=== PATIENT | female | born 1990 | race African-American/Black ===

== ENCOUNTER 2020-04-15 07:57 | Inpatient (IN) | payer OTHER ==
[2020-04-15] MEDS ORDERED: ELECTROLYTE-148 SOLN 500 ML IV ONE (09:00)
[2020-04-15 09:31] VITALS: BMI 34.0
[2020-04-15] MEDS ORDERED: ELECTROLYTE-148 SOLN 1,000 ML IV SCH (09:45)
--- NOTE | 2020-04-15 09:57 | HP ---
Past Medical History - Primary Care Physician PCP:: Janet Alexander - Admission Chief Complaint: 29 yrs , previous c/sx3, 39weeks , requests for repeat c/section & volumtory sterlization History of Present Illness: pnc at, [facility] transferred to [address] [place] [address] for rc/sec at 36 wks 04/09/20 labs h/h 11.0/32.9 , plt 209, gc/ct neg, gbs neg hiv neg , panel 09/27/19 AB Pos , Hbsag neg, hiv neg, rpr nr, rubella immune, cf screen neg, lead neg, pap nilm, gc/ct neg, uc/s neg , quantiferon neg 03/10/20 ; h/h 10.3/33.9, 1 hr gtt 82 us done by MFMaria Guadalupe Ayers at [facility]. 10/10/19 us 12.1 wks , edc assigned 04/22/20 nt screen, afp neg 02/27/20 us 32.1 wk, mey 12.0, efw 3'13"(19 %tile) History Source: Patient, Medical Record Limitations to Obtaining History: No Limitations - Past Medical History Cardiovascular: No: HTN, Murmur Pulmonary: No: Asthma Gastrointestinal: Yes: Hemorrhoids Hepatobiliary: No: Hepatitis B Renal/: No: UTI ...: 5 ...Para: 3 (1 12/14/07 PC/Sec boy 7'7" , G2 2013 Rc/s girl , G3 2015 boy, all at [facility] ) ...Term: 3 ...: 0 ...Spon : 0 ...Induced : 1 (08/03/18 ) ...Living Children: 3 ...Multiple Gestation: 0 ...LMP: 07/06/19 ... Weeks Gestation by Dates: 40.4 ...EDC by Dates: 04/11/20 ...EDC by Sono: 04/22/20 (39 weeks ) Heme/Onc: Yes: Anemia Infectious Disease: No: AIDS, C-Diff, Herpes Zoster, HIV, MRSA, STD's, Tuberculosis, VREF, Other Psych: No: Addictions, Anxiety, Bipolar, Depression, Panic, Psychosis, Schizophrenia, Other Endocrine: No: Diabetes Mellitus, Hyperthyroidism, Hypothyroidism - Past Surgical History Past Surgical History: Yes: (2007, 2013 & 2014) Hx Myomectomy: No Hx Transabdominal Cerclage: No - Smoking History Smoking history: Never smoked Have you smoked in the past 12 months: No - Alcohol/Substance Use Hx Alcohol Use: No History of Substance Use: reports: None Home Medications - Allergies Allergies/Adverse Reactions: Allergies Allergy/AdvReac Type Severity Reaction Status Date / Time No Known Allergies Allergy Verified 04/15/20 09:14 - Home Medications Home Medications: Ambulatory Orders NK [No Known Home Medication] 04/15/20 Review of Systems - Review of Systems Constitutional: reports: No Symptoms Eyes: reports: No Symptoms HENT: reports: No Symptoms Neck: reports: No Symptoms Cardiovascular: reports: No Symptoms Respiratory: reports: No Symptoms Gastrointestinal: reports: No Symptoms, Other (h/o hemorrhoids) Genitourinary: reports: No Symptoms Breasts: reports: Lumps (Rt breast) Musculoskeletal: reports: No Symptoms Integumentary: reports: No Symptoms Neurological: reports: No Symptoms Endocrine: reports: No Symptoms Hematology/Lymphatic: reports: No Symptoms Psychiatric: reports: No Symptoms Physical Exam - Maternity Vital Signs: Vital Signs Temperature 98.7 F 04/15/20 08:23 Pulse Rate 97 H 04/15/20 08:23 Respiratory Rate 18 04/15/20 08:23 Blood Pressure 124/82 04/15/20 08:23 O2 Sat by Pulse Oximetry (%) Selected Entries 04/15/20 09:16 Weight 230 lb Constitutional: Yes: Well Nourished, Obese Eyes: Yes: WNL HENT: Yes: WNL, Normocephalic Neck: Yes: WNL Cardiovascular: Yes: WNL Lungs: Clear to auscultation Breast(s): Yes: Mass (Rt breast at10 o'cloclk outside aeola , firm,irregular nontender) - Abdominal Exam/OB Fundal Height: 39 Number of Fetuses: Single Presentation: Vertex Contractions: Yes Regularity: Irregular Intensity: Unaware Monitor Mode: External Heart Rate (range): 130 Heart Rate Location: Midline Category: I Accelerations: Non-Uniform Decelerations: None - Vaginal Exam/OB Vaginal Bleeding: No Speculum Exam: No Dilatation (cm): close Effacement (%): unefface Amniotic Membrane Status: Intact Presentation: Vertex/Position Station: -3 - Physical Exam Musculoskeletal: Yes: WNL Extremities: Yes: WNL Edema: LLE: 1+, RLE: 1+ Integumentary: Yes: Incision (pfannensteil scar), Tattoos, Venous Stasis Changes (bilateral large varicose veins on thiighs) Deep Tendon Reflex Grade: Normal +2 ...Motor Strength: WNL Psychiatric: Yes: WNL - Labs Lab Results: Laboratory Tests 04/11/20 04/11/20 04/11/20 10:41 10:41 10:41 WBC 8.0 RBC 3.67 Hgb 10.7 Hct 31.7 L MCV 86.2 MCH 29.1 MCHC 33.8 RDW 15.4 Plt Count 203 MPV 7.9 Absolute Neuts (auto) 4.6 Neutrophils % 57.6 Lymphocytes % 26.1 Monocytes % 15.2 H Eosinophils % 0.8 Basophils % 0.3 Nucleated RBC % 0 PT with INR 11.20 INR 0.95 Sodium 139 Potassium 4.1 Chloride 107 Carbon Dioxide 27 Anion Gap 5 L BUN 7.2 Creatinine 0.5 L Est GFR (CKD-EPI)AfAm 149.47 Est GFR (CKD-EPI)NonAf 128.97 Random Glucose 58 L Calcium 8.8 Total Bilirubin 0.2 AST 13 L ALT 14 Total Protein 6.4 Albumin 2.9 L Syphilis Serology COVID-19 (MARY) 04/11/20 04/11/20 10:41 10:55 WBC RBC Hgb Hct MCV MCH MCHC RDW Plt Count MPV Absolute Neuts (auto) Neutrophils % Lymphocytes % Monocytes % Eosinophils % Basophils % Nucleated RBC % PT with INR INR Sodium Potassium Chloride Carbon Dioxide Anion Gap BUN Creatinine Est GFR (CKD-EPI)AfAm Est GFR (CKD-EPI)NonAf Random Glucose Calcium Total Bilirubin AST ALT Total Protein Albumin Syphilis Serology Non-reactive COVID-19 (MARY) Not detected Hemorrhage Risk Assessment - Risk Factors Medium Risk Factors: Yes: Prior , uterine surgery,or multiple laparot omies Risk Score: 1 Risk Level: Medium Risk Problem List - Problems (1) with 39 completed weeks gestation Code(s): Z3A.39 - 39 WEEKS GESTATION OF (2) Previous section Code(s): Z98.891 - HISTORY OF UTERINE SCAR FROM PREVIOUS SURGERY (3) Multiparity, grand, in labor and delivery, antepartum Code(s): O09.40 - SUPERVISION OF W GRAND MULTIPARITY, UNSP TRIMESTER (4) Obesity (BMI 30.0-34.9) Code(s): E66.9 - OBESITY, UNSPECIFIED (5) Mass of right breast Code(s): N63.10 - UNSPECIFIED LUMP IN THE RIGHT BREAST, UNSPECIFIED QUADRANT Assessment/Plan 29 yrs , 39 weeks by us previous c/s x3 , reuests repeat c/s & voluntory sterlization. Plan repeat LFTC/Section & BTL ( total salpingectomy). r/b/a explained not ltd to adhesion lysis, bladderm bowel, ureter injury, hemorrhage , inablity to access tubes . pt understands & consents for surgery
[2020-04-15] MEDS ORDERED: ACETAMINOPHEN 325 MG TABLET (FP) PO PRN (10:01)
[2020-04-15] MEDS ORDERED: IBUPROFEN 600 MG TABLET (FP) PO PRN (10:01)
[2020-04-15] MEDS ORDERED: ONDANSETRON 4 MG/2 ML VIAL IVPUSH PRN (10:01)
[2020-04-15] MEDS ORDERED: morphine SULFATE/PF 0.5 MG/ML (2cc Syringe - QUVA) ONE (10:42)
[2020-04-15] MEDS ORDERED: ceFAZolin SODIUM 1 GM VIAL ONE ×2 (10:57)
[2020-04-15] MEDS ORDERED: OXYTOCIN 10 UNITS/ML VIAL ONE ×4 (10:57→10:58)
[2020-04-15] MEDS ORDERED: ePHEDrine SULFATE 50 MG/1 ML AMPULE ONE (11:03)
[2020-04-15] MEDS ORDERED: oxyCODONE HCL 5 MG TABLET PO PRN (12:32)
[2020-04-15] MEDS ORDERED: METHYLERGONOVINE MALEATE 0.2 MG/1 ML AMP IM PRN (12:32)
--- NOTE | 2020-04-15 12:49 | PN ---
Delivery - Delivery Section: Repeat, Low Flap Transverse (repeat LFTC/section & bilatearla salpingectomy) Type of Anesthesia: Spinal Episiotomy/Laceration: None EBL (cc): 800 (intraop wolfe output 100mlamber color ) Delivery, Single - Stages of Labor Date of Delivery: 04/15/20 Time of Delivery: 11:12 Time Placenta Delivered: 11:13 Placenta: Yes: Manual Removal, Uterine Exploration - Condition of Infant Placing Judge/Side Show Entertainer Present: Yes Name: Catalina Ladd Gender: Female Weight: 7 lb 2 oz Position: Right, OT Total Hours ROM (Hrs/Mins): 0hrs 2min - 1 Minute Total Score: 9 5 Minutes Total Score: 9 - [place] Feeding Plan Initial Plan: Elected not to breastfeed exclusively throughout hospitalization Remarks - Remarks Remarks: 29 yrs , 39 weeks by us , previous c/sx3, requests repeat c/s gbs neg pnc [facility] PP & 2, [facility] Intra op course uneventful 2gm IV ancef intra op
[2020-04-15 12:51] LABS: CORD BASE EXCESS -5.5 mmol/L (0-2); CORD HCO3 22.6 mmHg (20-29); CORD PCO2 56.2 mmHg (30-78); CORD pH 7.223 (7.14-7.44)
[2020-04-15 12:54] LABS: CORD BASE EXCESS -4.6 mmol/L (0-2); CORD HCO3 21.5 mmHg (20-29); CORD PCO2 43.1 mmHg (30-78); CORD pH 7.315 (7.14-7.44)
--- NOTE | 2020-04-15 12:55 | OP ---
Operative Note - Note: Operative Date: 04/15/20 Pre-Operative Diagnosis: 39 weeks .previous c/sx3, multiparity , voluntory sterlization Operation: Repeat LFTC/section Bilateral salpingectomy Findings: bladder high mid way upto incision no rectus muscle noted in the middle . parietal pertoneum incisied transversely & approximated together transversely. Rt side muscle transcted for exposure of uterus . Baby girl , ROT Position, 9/9, wt7'2" both tubes & ovaries normal bilateral total salpingectomy with ligasure was done Angular Js Developer Dr Julee Arnold Surgeon: Janet Alexander Watermaster: Serjio Irby Anesthesiologist/STORE CLERK CASHIER: August Myers Anesthesia: Spinal Specimens Removed: cord segment for cord gas. cord blood. placenta Estimated Blood Loss (mls): 800 Drains, Volume Out (mls): 100 (wolfe urine output , kvng color ) Fluid Volume Replaced (mls): 1,500 (2 gm iv Ancef pre incision ) Operative Report Dictated: Yes
[2020-04-15] MEDS ORDERED: IBUPROFEN 800 MG/8 ML IJ IVPB ONE (13:39)
[2020-04-15] MEDS: IBUPROFEN 800 MG/8 ML IJ IVPB PRN ×2 (13:44→19:27)
--- NOTE | 2020-04-15 14:51 | OP ---
DATE OF OPERATION: 04/15/2020 PREOPERATIVE DIAGNOSIS: At 39 weeks, previous sections x3 and multiparity, voluntary sterilization. OPERATION: 1. Repeat low flap transverse section. 2. Bilateral total salpingectomy. SURGEON: Janet Alexander MD ANESTHESIOLOGIST: August Martinez MD SOLDER MAKING SUPERVISOR: VIOLA Olivera PROFESSIONAL ARCHITECT: Catalina Ladd MD FINDINGS: This is a 29-year-old 5, para 3-0-1-3. She is 39 weeks, not in labor and scheduled for a repeat and she also requests for a tubal ligation. Cephalic presentation. Also patient is obese. Her BMI is 39 and she has bilateral large varicose veins. PROCEDURE: Patient was taken to the operating room table. Spinal anesthesia was given. Baires catheter was placed and the SCD stockings were attached to the machine. Patient was in supine position. Abdomen was painted and draped in usual manner. Pfannenstiel incision was made through previous scar. The skin, subcutaneous tissue, anterior rectus sheath were incised transversely. Bleeding points were clamped and cauterized. Rectus muscle was from the rectus sheath. Parietal peritoneum was opened vertically. The parietal peritoneum was not opened vertically. The bladder was very high noted and before opening the parietal peritoneum it was incised transversely and the right side the rectus muscle was transected. The bladder high on the uterus and adhesion bands were lysed and the bladder was pushed down. Then the incision was made higher up on the uterus, higher limit of the lower segment, and was extended transversely. Amniotic fluid was clear. Baby was delivered at 11:12 a.m. from ROT position, baby girl. was 9, 9. Baby's weight was 7 pounds, 2 ounces. Cord was clamped and cut. Cord segment sent for the cord blood gas and the cord blood collected. Placenta removed completely with the membranes. Uterus brought out of the incision and then the uterine cavity was cleaned and the uterine incision was closed in 2 layers. First layer was a continuous locking with a Biosyn 0 suture. Second layer was intermittently locking with a Biosyn 0 suture, and in the second layer also the bladder peritoneum was included. Hemostasis was verified. Varicosity was seen in the broad ligament and both her ovaries were normal. Tubes were identified up to the fimbrial end, first on the right side, then on the left side. With the LigaSure just below the tube the mesosalpinx area was clamped and cauterized and cut in multiple steps until the cornual end was reached. The tube was split. Hemostasis was verified and irrigation was done. Uterus was placed to the peritoneal cavity. Hemostasis was verified on the uterus and also on both the tubal site and surgery. The lap pad, sponge, instrument, needle count was correct and then the closure of the abdomen was done. Parietal peritoneum was closed transversely with a Vicryl 0 suture. Then hemostasis was verified in the muscle layer and the right side muscle was approximated together with a Biosyn 0 suture. One suture was taken between the right and the left side together. There was no muscle seen in the middle portion of the incision right in the beginning. Then the anterior rectus sheath was mobilized from the skin and then the anterior rectus sheath was closed with a Vicryl 0 suture. Continuous sutures were taken. Then the rectus sheath was closed with a Vicryl 0 continuous suture. Hemostasis checked in subcutaneous tissue. Subcutaneous tissue approximated with 2-0 Vicryl. Skin was approximated with rsi and patient tolerated procedure well. Pressure dressing given and blood clots removed from the vagina. Patient tolerated procedure well and she was transferred to the recovery room in stable condition. Estimated blood loss was 800 mL. She received 2 g of IV Ancef prior to the incision. IV fluids were given, 1500 mL. Urine output was 100 mL and blood-colored urine. Mary [id number] MTDNora
[2020-04-15] MEDS: CEFAZOLIN 1 GM/D5W 1 GM/50 ML BAG IVPB SCH (17:24)
[2020-04-15] MEDS: OXYTOCIN 20 UNITS in 0.9% NS 20 UNIT/1,000 ML INFUS.BAG IV SCH (19:27)
[2020-04-15] MEDS ORDERED: SENNOSIDES/DOCUSATE COMBO (SENNA PLUS) TABLET (UD) PO PRN (22:00)
[2020-04-16] MEDS: ACETAMINOPHEN 325 MG TABLET (FP) PO PRN ×4 (01:39→22:21)
[2020-04-16] MEDS: IBUPROFEN 600 MG TABLET (FP) PO PRN ×4 (01:39→22:22)
[2020-04-16] MEDS: CEFAZOLIN 1 GM/D5W 1 GM/50 ML BAG IVPB SCH ×2 (01:40→10:30)
[2020-04-16] MEDS: IBUPROFEN 800 MG/8 ML IJ IVPB PRN (03:19)
--- NOTE | 2020-04-16 08:15 | PN ---
Post Progress Note - Subjective Subjective: Pain controlled. No fevers/chills. Baires removed. No flatus or BM yet. Post Day: 1 Type of Delivery: Repeat C/S Vital Signs: Vital Signs Temperature 98.6 F 04/16/20 06:00 Pulse Rate 88 04/16/20 06:00 Respiratory Rate 04/16/20 06:31 Blood Pressure 126/92 04/16/20 06:00 O2 Sat by Pulse Oximetry (%) 96 04/16/20 06:00 Uterus: Yes: Fundus below umbilicus Incision: Yes: Dressing dry and intact Abdomen/GI: Yes: Abdomen soft Lochia: Yes: Rubra Lochia, amount: Small Extremities: Yes: Calves non-tender Perineum: Yes: Intact Activity: Ambulating Assessment/Plan 29yo s/p RLTCS, BTL, POD#1 Routine PP Care PO pain control Baires out, OOB, ambulate F/U AM CBC D/C to home POD#3 Hung Herrrea MD
--- NOTE | 2020-04-16 08:46 | PN ---
Progress Note (short form) - Note Progress Note: 29F POD1 s/p c section under spinal anesthetic including intrathecal duramorph. Pt states that pain is well controlled and reports no anesthetic complications. Continue current regimen.
[2020-04-16 08:59] LABS: BASO % 0.3 % (0-2.0); EOS % 0.3 % (0-4.5); HEMOGLOBIN 9.3 GM/dL (10.7-15.3); LYMPH % 13.9 % (8-40); MCH 28.3 pg (25.7-33.7); MCHC 33.3 g/dl (32.0-36.0); MEAN PLT VOLUME 7.9 fl (7.5-11.1); MONO % 10.6 % (3.8-10.2); NEUT % 74.9 % (42.8-82.8); PLATELET COUNT 175 K/MM3 (134-434); RBC 3.29 M/mm3 (3.60-5.2); RDW 15.4 % (11.6-15.6); WHITE BLOOD COUNT 9.8 K/mm3 (4.0-10.0)
[2020-04-16] MEDS: PRENATAL VITAMINS W/ FOLIC ACID TABLET (FP) PO SCH (09:59)
[2020-04-16] MEDS: ENOXAPARIN NA (PORCINE) 40 MG/0.4 ML DISP.SYRIN SQ SCH (09:59)
[2020-04-16] MEDS ORDERED: BISACODYL 10 MG SUPP.RECT RC PRN (12:32)
[2020-04-16] MEDS ORDERED: WITCH HAZEL 50% (TUCKS) 40 PAD/JAR PAD TP PRN (13:09)
[2020-04-16] MEDS: SIMETHICONE 80 MG TAB.CHEW (FP) PO PRN ×2 (15:30→22:22)
[2020-04-16] MEDS: FERROUS SO4 325 MG TABLET (FP) PO SCH (17:15)
[2020-04-16] MEDS: OXYTOCIN 20 UNITS in 0.9% NS 20 UNIT/1,000 ML INFUS.BAG IV SCH (19:58)
[2020-04-16] MEDS ORDERED: BENZOCAINE 28 GM HEMORRHOIDAL OINTMENT RC PRN (23:35)
[2020-04-16] MEDS ORDERED: BENZOCAINE 20% 57 GM BOTTLE TP PRN (23:35)
[2020-04-17] MEDS: ACETAMINOPHEN 325 MG TABLET (FP) PO PRN (05:22)
[2020-04-17] MEDS: SIMETHICONE 80 MG TAB.CHEW (FP) PO PRN (05:22)
[2020-04-17] MEDS: IBUPROFEN 600 MG TABLET (FP) PO PRN (05:22)
--- NOTE | 2020-04-17 07:52 | DS ---
Physical Exam-LARGE ENGINE ASSEMBLER Vital Signs: Vital Signs Temperature 98.5 F 04/16/20 22:00 Pulse Rate 84 04/16/20 22:00 Respiratory Rate 20 04/16/20 22:00 Blood Pressure 119/72 04/16/20 22:00 O2 Sat by Pulse Oximetry (%) 96 04/16/20 06:00 Constitutional: Yes: Well Nourished, No Distress, Calm Eyes: Yes: WNL, Conjunctiva Clear, EOM Intact HENT: Yes: WNL, Atraumatic, Normocephalic Neck: Yes: WNL, Supple, Trachea Midline Cardiovascular: Yes: WNL, Regular Rate and Rhythm Respiratory: Yes: WNL, Regular, CTA Bilaterally Gastrointestinal: Yes: WNL ...Rectal Exam: Yes: WNL Renal/: Yes: WNL ....Post : Yes: Uterus firm, Uterus non-tender, Slight lochia rubra Breast(s): Yes: WNL Musculoskeletal: Yes: WNL Extremities: Yes: WNL Edema: No Integumentary: Yes: WNL Wound/Incision: Yes: Clean/Dry, Well Approximated, [place] Intact Neurological: Yes: WNL, Alert, Oriented ...Motor Strength: WNL Psychiatric: Yes: WNL, Alert, Oriented Labs: CBC, BMP 04/16/20 08:15 Delivery - Delivery Section: Repeat, Low Flap Transverse (repeat LFTC/section & bilatearla salpingectomy) Type of Anesthesia: Spinal Episiotomy/Laceration: None EBL (cc): 800 (intraop wolfe output 100mlamber color ) Delivery, Single - Stages of Labor Date of Delivery: 04/15/20 Time of Delivery: 11:12 Time Placenta Delivered: 11:13 Placenta: Yes: Manual Removal, Uterine Exploration - Condition of Infant Wharf Attendant/Tractor Engine Mechanic Present: Yes Name: Catalina Ladd Infant Gender: Female Weight: 7 lb 2 oz Position: Right, OT Total Hours ROM (Hrs/Mins): 0hrs 2min - 1 Minute Total Score: 9 5 Minutes Total Score: 9 - Feeding Plan Initial Plan: Elected not to breastfeed exclusively throughout hospitalization Discharge Summary Problems reviewed: Yes Reason For Visit: REPEAT & BTL Current Active Problems Mass of right breast (Acute) Multiparity, grand, in labor and delivery, antepartum (Acute) Obesity (BMI 30.0-34.9) (Acute) with 39 completed weeks gestation (Acute) Previous section (Acute) Procedures: Principal: repeat LST c/s Hospital Course: no complication Plan of Treatment: follow up [facility] care on Monday Condition: Stable - Instructions Diet, Activity, Other Instructions: Post Instructions DIET: Continue good diet high in protein, calcium, and iron rich foods. Drink at least eight (8) glasses of water daily in addition to other fluids. ___ Regular diet MEDICATIONS: Continue vitamins and iron as previously directed. Motrin and Tylenol may be taken for minor discomfort. ACTIVITY: Mild to moderate exercise may be started in two (2) weeks. Take frequent rest periods. Resume normal activity after six (6) week check up. WOUND CARE OF OPERATIVE SITE: Continue use of perineal bottle until vaginal discharge stops. Keep area clean. Shower daily. Keep abdominal wound dry. Report any drainage or redness to physician. Tub baths, tampons and douches are not permitted for [address] Breast feeding & or Bottle feeding BREAST CARE: (For those that are not ): If engorgement occurs: Wear tight fitting bra. Take Tylenol or Motrin for pain. Apply cold packs (ice in bags to each breast ) FAMILY PLANNING: There are many control alternatives to pursue and they should be discussed at your first office visit. You may resume sexual activity after your six (6) week check up. (Remember, breast feeding is not a contraceptive) NEXT PHYSICIAN APPOINTMENT: Be certain to call for a one (1) week appointment, unless otherwise directed. [facility] with Tawanda .call [phone] for sri removal Call Clinic or got to Emergency Dept if you have any of the following: Heavy vaginal bleeding Painful urination Leg pain Unusual odor noted to vaginal bleeding High fever Red streaking noted on breast Referrals: Janet Alexander MD [Staff Physician] - Disposition: HOME - Home Medications Comprehensive Discharge Medication List: Ambulatory Orders Acetaminophen [Tylenol .Regular Strength -] 500 mg PO Q4H PRN #30 tablet 04/16/20 Ferrous Sulfate [Feosol] 325 mg PO BIDWM #60 tab 04/16/20 Ibuprofen [Motrin -] 600 mg PO Q4H PRN #30 tablet 04/16/20 Vitamins (Sjr) - 1 tab PO DAILY #30 tablet 04/16/20 Sennosides/Docusate Sodium [Pericolace -] 2 tablet PO HS PRN #60 tablet 04/16/20 oxyCODONE HCL [Roxicodone -] 5 mg PO Q6H PRN #20 tablet MDD 20 mg 04/16/20
[2020-04-17] MEDS: FERROUS SO4 325 MG TABLET (FP) PO SCH (10:18)
[2020-04-17] MEDS: PRENATAL VITAMINS W/ FOLIC ACID TABLET (FP) PO SCH (10:20)
[2020-04-17] MEDS: ENOXAPARIN NA (PORCINE) 40 MG/0.4 ML DISP.SYRIN SQ SCH (10:21)
[2020-04-17 12:22] VITALS: BP 133/80; PULSE 80; TEMP 98.2
--- NOTE | 2020-04-21 09:48 | PATH ---
Surgical Pathology Report Patient Name: NASRA MARINELLI [facility]. Rec. #: [id number] /Age/Gender: 1990 (Age: 29) / F Account: [id number] Location: [address] [place] [address] OBG/RN OTOLARYNGOLOGY Taken: 04/15/2020 Received: 04/16/2020 Reported: 04/21/2020 Physicians: Janet Alexander M.D. Specimen(s) Received A: PLACENTA B: RIGHT FALLOPIAN TUBE C: LEFT FALLOPIAN TUBE Clinical History , Final Diagnosis A. PLACENTA, SECTION: 615 G THIRD TRIMESTER PLACENTA WITH MODERATE FIBRIN DEPOSITION, TRIVASCULAR UMBILICAL CORD AND UNREMARKABLE PLACENTAL MEMBRANES. B. FALLOPIAN TUBE, RIGHT, SALPINGECTOMY: UNREMARKABLE FALLOPIAN TUBE (INCLUDING FIMBRIATED END AND FULL LUMINAL PORTION). C. FALLOPIAN TUBE, LEFT, SALPINGECTOMY: UNREMARKABLE FALLOPIAN TUBE (INCLUDING FIMBRIATED END AND FULL LUMINAL PORTION). Electronically Signed Gisel Boyle M.D. Gross Description A. The specimen is received fresh labeled placenta and is a 615 gram, 21 x 17 x 1.5 cm. placenta with attached membranes and umbilical cord. The attached membranes are cantu, opaque and insert marginally. The umbilical cord measures 20 cm. in length and averages 1.2 cm. in diameter. The cord inserts centrally. No true knots or strictures are identified. Cut surface of the umbilical cord reveals 3 vessels. The surface is tello-blue with minimal fibrin deposition and appropriate caliber vessels. The maternal surface is red-brown with focal defects. Sectioning reveals cantu lesion measuring 5 cm in greatest dimension. Remainder of the parenchyma is red-brown and spongy. Restaurant [employer] sections are submitted in 5 cassettes as follows: 1- membrane rolls and umbilical cord; 2-3- full thickness sections of placenta; 4-5- lesion. B. Received in formalin labeled "right fallopian tube," is a 10 cm in length fimbriated fallopian tube. The outer surface is cantu-benoit. Sectioning reveals an unremarkable lumen. Restaurant [employer] sections are submitted in 2 cassettes as follows: 1-fimbria; 2-cross sections of fallopian tube. C. Received in formalin labeled "left fallopian tube," is a 8 cm in length fimbriated fallopian tube. The outer surface is cantu-benoit. Sectioning reveals an unremarkable lumen. Restaurant Cook sections are submitted in 2 cassettes as follows: 1-fimbria; 2-cross sections of fallopian tube S/04/16/2020 [facility]04/16/2020
== END 2020-04-17 13:00 | disposition home or self-care (01) | DRG 540 ==
LOC: JLDR 07:57 → J3N 14:13
PROVIDERS: ADMIT Obstetrics & Gynecology; ATTEND Obstetrics & Gynecology
PROC: 10D00Z1 Extraction of Products of Conception, Low, Open Approach (ICD-10-PCS; principal; 2020-04-15)
PROC: 0UT70ZZ Resection of Bilateral Fallopian Tubes, Open Approach (ICD-10-PCS; 2020-04-15)
DX: O82 Encounter for cesarean delivery without indication (principal); O99.214 Obesity complicating childbirth; E66.09 Other obesity due to excess calories; O99.03 Anemia complicating the puerperium; D64.9 Anemia, unspecified; N63.10 Unspecified lump in the right breast, unspecified quadrant; Z98.891 History of uterine scar from previous surgery; Z3A.39 39 weeks gestation of pregnancy; Z30.2 Encounter for sterilization; Z86.19 Personal history of other infectious and parasitic diseases; Z37.0 Single live birth
CPT/HCPCS: 36415; 36600; 82803; 85025; 88302-TC; 88307-TC